=== PATIENT | female | born 1960 | race Caucasian/White ===

== ENCOUNTER → 2024-07-06 | Outpatient (CLI) | payer MEDICARE, OTHER ==
--- NOTE | 2024-07-06 14:36 | US ---
EXAMINATION TYPE: US kidneys/renal and bladder DATE OF EXAM: 07/06/2024 COMPARISON: NONE CLINICAL INDICATION: Female, 64 years old with history of R319 HEMATURIA; hematuria TECHNIQUE: Grayscale and color Doppler imaging of the bilateral kidneys and urinary bladder: FINDINGS: EXAM MEASUREMENTS: Right Kidney: 9.3x5.4x4.4 cm Left Kidney: 8.0x4.7x4.0 cm Right Kidney: No hydronephrosis or masses seen Left Kidney: No hydronephrosis or masses seen Bladder: wnl Bilateral Jets seen: Yes There is no evidence for hydronephrosis at this point in time. No nephrolithiasis is seen. No gulshan s are identified. The urinary bladder is anechoic. exam limited by bowel gas and labored pt. breathing IMPRESSION: No evidence for obstructive uropathy or renal calculus. No masses definitively visualized. [facility], , 07/06/2024 2:33 PM
== END | disposition home or self-care (01) ==
LOC: RADUSWWP 13:24
PROVIDERS: ATTEND Family Medicine
DX: R31.9 Hematuria, unspecified (principal)
CPT/HCPCS: 76770

== ENCOUNTER → 2025-02-23 | Outpatient (CLI) | payer MEDICARE, OTHER ==
--- NOTE | 2025-03-08 09:44 | MM ---
Reason for Exam: Screening (asymptomatic). Last mammogram was performed 1 year(s) and 7 month(s) ago. Patient History: Menarche at age 17. First Full-Term at age 27. Postmenopausal. Patient used Hormonal Contraceptives for 2 years. 1987, Excisional Biopsy on the Left side. 2009, MG stereo VAD BX LT - 2 on the Left side. Risk Values: Mary 5 year model risk: 2.3%. NCI Lifetime model risk: 10.3%. Prior Study Comparison: 06/02/2021 Bilateral Screening Mammogram, [facility]. 06/19/2022 Bilateral Screening Mammogram, [facility]. 07/23/2023 Bilateral Screening Mammogram, [facility]. Tissue Density: The breasts are heterogeneously dense, which may obscure small masses. Findings: Analyzed By CAD. Asymmetric density far posterior left upper lobe medial just above the retroareolar plane is more defined. This may represent superimposition shadow but further evaluation is recommended. Additional asymmetric density left MLO view middle depth just below the retroareolar plane is also more defined. Further evaluation recommended. Otherwise, no significant change. Overall Assessment: Incomplete: need additional imaging evaluation, BI-RAD 0 Management: Special View Mammogram of the left breast. [facility] will attempt to contact patient to return for supplemental views and ultrasound if indicated. [facility], , 03/08/2025 9:41 AM. Electronically signed and approved by: Tony Odom M.D. Radiologist
== END | disposition home or self-care (01) ==
LOC: RADMAMWWP 09:47
PROVIDERS: ATTEND Family Medicine
DX: Z12.31 Encounter for screening mammogram for malignant neoplasm of breast (principal); R92.333 Mammographic heterogeneous density, bilateral breasts; Z78.0 Asymptomatic menopausal state; Z92.0 Personal history of contraception
CPT/HCPCS: 77067

== ENCOUNTER → 2025-03-09 | Outpatient (CLI) | payer MEDICARE, OTHER ==
--- NOTE | 2025-03-09 12:40 | MM ---
Reason for Exam: Additional evaluation requested from abnormal screening. Last screening mammogram was performed less than 1 month ago. Patient History: Menarche at age 17. First Full-Term at age 27. Postmenopausal. Patient used Hormonal Contraceptives for 2 years. 1987, Excisional Biopsy on the Left side. 2009, MG stereo VAD BX LT - 2 on the Left side. Risk Values: Mary 5 year model risk: 2.3%. NCI Lifetime model risk: 10.3%. Prior Study Comparison: 06/19/2022 Bilateral Screening Mammogram, [facility]. 07/23/2023 Bilateral Screening Mammogram, [facility]. 02/23/2025 Bilateral MG screening mammo w CAD, [facility]. Tissue Density: Left: The breasts are heterogeneously dense, which may obscure small masses. Findings: Analyzed By CAD. The central posterior and inferior middle depth asymmetric density is the MLO view disperses on additional views. Findings compatible with benign superimposition shadow. Overall Assessment: Benign, BI-RAD 2 Management: Screening Mammogram of both breasts in 1 year. Results were given to the patient verbally at the time of exam. Patient should continue monthly self-breast exams. A clinical breast exam by your physician is recommended on an annual basis. This exam should not preclude additional follow-up of suspicious palpable abnormalities. Note on Mary scores and lifetime risk: 1. A Mary score greater than 3% is considered moderate risk. If this is the case, consider specialist referral to assess eligibility for a risk reducing agent. 2. If overall lifetime risk for the development of breast cancer is 20% or higher, the patient may qualify for future screening with alternating mammogram and breast MRI. [facility], , 03/09/2025 12:37 PM. Electronically signed and approved by: Tony Odom M.D. Radiologist
== END | disposition home or self-care (01) ==
LOC: RADMAMWWP 12:14
PROVIDERS: ATTEND Family Medicine
DX: R92.8 Other abnormal and inconclusive findings on diagnostic imaging of breast (principal); R92.332 Mammographic heterogeneous density, left breast; Z78.0 Asymptomatic menopausal state; Z92.0 Personal history of contraception
CPT/HCPCS: 77065; G0279; 77061